=== PATIENT | male | born 1990 | race African-American/Black ===

== ENCOUNTER 2018-02-15 16:33 | Emergency (ER) | payer MEDICAID ==
[~2018-02-15] VITALS: Ht 180.3 cm; Wt 74.2 kg
[2018-02-15 16:56] VITALS: BP 144/72
== END 2018-02-15 17:24 | disposition home or self-care (01) ==
LOC: ED 17:15
DX: K08.89 Other specified disorders of teeth and supporting structures (principal); F17.200 Nicotine dependence, unspecified, uncomplicated
CPT/HCPCS: 99283

== ENCOUNTER 2019-06-09 16:02 | Emergency (ER) | payer SELFPAY ==
[~2019-06-09] VITALS: Ht 180.3 cm; Wt 74.5 kg
[2019-06-09 16:10] VITALS: BP 126/74
[2019-06-09] MEDS ORDERED: CARBAMIDE PEROXIDE EAR DROPS 6.5%, 15ML ONE (16:29)
[2019-06-09] MEDS ORDERED: CARBAMIDE PEROXIDE EAR DROPS 6.5%, 15ML RIGHT EAR ONE (16:30)
--- NOTE | 2019-06-09 17:42 | NUR ---
Patient given discharge instructions and they have confirmed that they understand the instructions. Patient ambulatory with steady gait.
== END 2019-06-09 18:11 | disposition home or self-care (01) ==
LOC: ED 17:55
DX: H61.23 Impacted cerumen, bilateral (principal); F17.210 Nicotine dependence, cigarettes, uncomplicated
CPT/HCPCS: 69209; 99283

== ENCOUNTER 2019-12-11 12:19 | Emergency (ER) | payer SELFPAY ==
[~2019-12-11] VITALS: Ht 180.3 cm; Wt 65.3 kg
--- NOTE | 2019-12-11 12:40 | NUR ---
PT REPORTS LOWER ABD BURNING AND BLOOD IN STOOL X6 DAYS. DESCRIBES STOOL TARRY IN COLOR AND RED OTHER TIMES. + N/V AND ANOREXIA. PLACED VITAL SIGNS MONITORS, AND CALL LIGHT WITHIN REACH.
[2019-12-11] MEDS ORDERED: DICYCLOMINE 10 MG/ML, 2ML IM ONE (13:30)
[2019-12-11] MEDS ORDERED: ONDANSETRON ODT 4 MG PO ONE (13:30)
[2019-12-11] MEDS ORDERED: DICYCLOMINE 10 MG/ML, 2ML ONE ×2 (13:33→13:37)
[2019-12-11] MEDS ORDERED: ONDANSETRON ODT 4 MG ONE (13:33)
[2019-12-11 13:42] VITALS: BP 128/81
--- NOTE | 2019-12-11 13:42 | NUR ---
MEDICATED PER MAR.
[2019-12-11 14:10] LABS: MEAN CORPUSCULAR HEMOGLOBIN 17.9 pg (27.5-34.5); MEAN CORPUSCULAR VOLUME 62.5 fL (81-97); MEAN PLATELET VOLUME 8.6 fL (7.4-10.4); PLATELET COUNT 367 x10^3/uL (130-400); RED BLOOD COUNT 5.35 x10^6/uL (4.38-5.82); RED CELL DISTRIBUTION WIDTH 22.5 % (9.4-14.8)
[2019-12-11 14:12] LABS: ALANINE AMINOTRANSFERASE 30 U/L (12-78); ALBUMIN 4.2 g/dL (3.4-5.0); ANION GAP 5 mmol/L (5-15); CALCIUM 9.3 mg/dL (8.5-10.1); CHLORIDE 105 mmol/L (98-107); CREATININE 1.19 mg/dL (0.7-1.3)
[2019-12-11 14:13] LABS: MICROSCOPIC NOT IND
[2019-12-11 14:14] LABS: ALKALINE PHOSPHATASE 63 U/L (45-117); BILIRUBIN,TOTAL 0.4 mg/dL (0.2-1.0); TOTAL PROTEIN 8.4 g/dL (6.4-8.2)
[2019-12-11 14:39] LABS: BASOPHILS # (AUTO) 0.05 x10^3/uL (0-0.1); BASOPHILS % (AUTO) 1 % (0-1); EOSINOPHILS % (AUTO) 2 % (1-7); LYMPHOCYTES # (AUTO) 1.74 x10^3/uL (1-3.4); LYMPHOCYTES % (AUTO) 25 % (22-44); MD MORPH REVIEW ONLY; MONOCYTES # (AUTO) 1.31 x10^3/uL (0.2-0.8); MONOCYTES % (AUTO) 19 % (2-9); NEUTROPHILS # (AUTO) 3.83 x10^3/uL (1.8-6.8); NEUTROPHILS % (AUTO) 55 % (42-75)
--- NOTE | 2019-12-11 14:57 | NUR ---
TASK RN NOTE: PT GIVEN DC INSTRUCTIONS AND SCRIPT, EDUCATED REGARDING RX FOR CARAFATE, PREVACID, AND ZOFRAN. EDUCATED REGARDING GI F/U. PT A&O, RESPS EVEN AND UNLABORED, NADN. PT AMBULATORY TO DC DESK WITH STEADY GAIT.
[2019-12-11 15:03] LABS: ANISOCYTOSIS 2+
[2019-12-11 15:04] LABS: MICROCYTOSIS 1+
[2019-12-11 15:05] LABS: HYPOCHROMIA 2+
[2019-12-11 15:07] LABS: OVALOCYTES 1+
[2019-12-11 15:08] LABS: POLYCHROMASIA 1+; TARGET CELLS 1+
[2019-12-11 15:09] LABS: TEAR DROPS 1+
[2019-12-11 15:10] LABS: <PLATELET ESTIMATE> ADEQUATE; <PLT MORPHOLOGY> NORMAL PLT MORPH
[2019-12-11 15:23] LABS: MEAN CORPUSCULAR HGB CONC 28.6 g/dL (33.2-36.2)
== END 2019-12-11 14:58 | disposition other institution (70) ==
LOC: ED 14:28
DX: K29.01 Acute gastritis with bleeding (principal); R11.2 Nausea with vomiting, unspecified; R19.7 Diarrhea, unspecified; K92.1 Melena
CPT/HCPCS: 36415; 80053; 81003; 83690; 85025; 96372; 99283; J0500; Q0162

== ENCOUNTER 2020-06-21 09:28 | Emergency (ER) | payer SELFPAY ==
[~2020-06-21] VITALS: Ht 180.3 cm; Wt 70.8 kg
--- NOTE | 2020-06-21 09:45 | NUR ---
PT STATES THAT HE WAS DIAGNOSED WITH SICKLE CELL ANEMIA 6MO AGO. PT HAS HAD ABD PAIN AND BLOOD IN STOOL X1 WEEK. PT STATES THAT HE FEELS VERY DIZZY AND WEAK AND HAS SOME SHORTNESS OF BREATH WITH ACTIVITY. PT STATES THAT HE HAS ALL OVER PAIN. PT DENIES ANY FEVER OR CHILLS.
[2020-06-21] MEDS ORDERED: FAMOTIDINE 20 MG/2 ML ONE (10:10)
[2020-06-21] MEDS ORDERED: HYDROmorphone 1 MG/ML, 1ML INJ ONE (10:10)
[2020-06-21 10:20] LABS: MEAN CORPUSCULAR HEMOGLOBIN 19.8 pg (27.5-34.5); MEAN CORPUSCULAR HGB CONC 30.8 g/dL (33.2-36.2); MEAN PLATELET VOLUME 7.8 fL (7.4-10.4); PLATELET COUNT 287 x10^3/uL (130-400); RED BLOOD COUNT 3.57 x10^6/uL (4.38-5.82); RED CELL DISTRIBUTION WIDTH 19.2 % (9.4-14.8)
--- NOTE | 2020-06-21 10:29 | NUR ---
PT TO IMAGING
[2020-06-21] MEDS ORDERED: FAMOTIDINE 20 MG TABLET PO ONE (10:30)
[2020-06-21] MEDS ORDERED: HYDROmorphone 2 MG/ML, 1ML IVPush PRN (10:30)
[2020-06-21] MEDS ORDERED: SODIUM CHLORIDE FLUSH 10ML SYR IVF ONE (10:30)
[2020-06-21] MEDS ORDERED: SODIUM CHLORIDE 0.9% 1,000ML IVBOLUS ONE (10:30)
[2020-06-21 10:32] LABS: ALANINE AMINOTRANSFERASE 20 U/L (12-78); ALBUMIN 3.7 g/dL (3.4-5.0); ANION GAP 4 mmol/L (5-15); CALCIUM 9.3 mg/dL (8.5-10.1); CHLORIDE 110 mmol/L (98-107); CREATININE 1.12 mg/dL (0.7-1.3)
[2020-06-21 10:34] LABS: ALKALINE PHOSPHATASE 59 U/L (45-117); BILIRUBIN,TOTAL 0.3 mg/dL (0.2-1.0); TOTAL PROTEIN 7.1 g/dL (6.4-8.2)
[2020-06-21 10:36] LABS: MD YES
--- NOTE | 2020-06-21 10:37 | NUR ---
PT BACK FROM IMAGING
[2020-06-21 10:38] LABS: ANISOCYTOSIS 2+; BAND#(MANUAL) 0.12 x10^3/uL; BANDS%(MANUAL) 2 % (0-7); BASOS#(MANUAL) 0.06 x10^3/uL (0-0.1); BASOS% (MANUAL) 1 % (0-1); EOS#(MANUAL) 0.06 x10^3/uL (0.0-0.4); EOS% (MANUAL) 1 % (1-7); HYPOCHROMIA 2+; LYMPH#(MANUAL) 2.44 x10^3/uL (1-3.4); LYMPHS% (MANUAL) 40 % (22-44); MICROCYTOSIS 2+; MONOS#(MANUAL) 0.49 x10^3/uL (0.3-2.7); MONOS% (MANUAL) 8 % (2-9); OVALOCYTES 1+; SEG#(MANUAL) 2.93 x10^3/uL (1.8-6.8); SEGS% (MANUAL) 48 % (42-75)
[2020-06-21 10:39] LABS: <PLATELET ESTIMATE> ADEQUATE; <PLT MORPHOLOGY> NORMAL PLT MORPH; POLYCHROMASIA 1+; TARGET CELLS 1+; TEAR DROPS 1+
[2020-06-21] MEDS ORDERED: FAMOTIDINE 20 MG TABLET ONE (10:39)
[2020-06-21] MEDS ORDERED: FAMOTIDINE 10 MG TAB ONE (10:39)
--- NOTE | 2020-06-21 11:34 | NUR ---
PT RESTING COMFORTABLY IN BED. CALL LIGHT WITHIN REACH.
[2020-06-21 12:25] VITALS: BP 114/68
--- NOTE | 2020-06-21 12:52 | NUR ---
PT RESTING COMFORTABLY IN BED.
--- NOTE | 2020-06-21 13:17 | NUR ---
DISCHARGE INTRUCTIONS REVIEWED WITH PT. ALL QUESTIONS ANSWERED AT THIS TIME.
== END 2020-06-21 13:20 | disposition home or self-care (01) ==
LOC: ED 12:55
DX: K29.01 Acute gastritis with bleeding (principal); D64.9 Anemia, unspecified; K64.9 Unspecified hemorrhoids; R10.13 Epigastric pain; R06.02 Shortness of breath; R42 Dizziness and giddiness; R10.9 Unspecified abdominal pain
CPT/HCPCS: 36415; 74022; 80053; 83690; 85025; 96361; 96374; 99284; J1170; J7030

== ENCOUNTER 2020-10-10 15:27 | Emergency (ER) | payer SELFPAY ==
[~2020-10-10] VITALS: Ht 182.9 cm; Wt 74.8 kg
[2020-10-10 15:49] VITALS: BP 129/55
--- NOTE | 2020-10-10 15:54 | NUR ---
TRIAGE: PT PLACED IN C-COLLAR IN TRIAGE.
--- NOTE | 2020-10-10 17:15 | NUR ---
Patient/Caregiver given discharge instructions and they have confirmed that they understand the instructions. Patient ambulatory with steady gait.
== END 2020-10-10 17:16 | disposition home or self-care (01) ==
LOC: ED 17:05
DX: S16.1XXA Strain of muscle, fascia and tendon at neck level, initial encounter (principal); S00.93XA Contusion of unspecified part of head, initial encounter; X58.XXXA Exposure to other specified factors, initial encounter; Y93.89 Activity, other specified; Y92.89 Other specified places as the place of occurrence of the external cause; Y99.8 Other external cause status
CPT/HCPCS: 72050; 99283